=== PATIENT | male | born 1995 | race Asian ===

== ENCOUNTER 2020-05-17 14:40 | Emergency (ER) | payer OTHER ==
[~2020-05-17] VITALS: Ht 180.3 cm; Wt 72.6 kg
[2020-05-17 15:57] LABS: PLATELET COUNT 359 K/uL (142-355)
[2020-05-17 16:06] LABS: POTASSIUM 4.2 mmol/L (3.6-5.2)
[2020-05-17 17:25] VITALS: BP 116/83; TEMP 98.7
== END 2020-05-17 17:30 | disposition home or self-care (01) ==
LOC: ED 14:40
PROVIDERS: Emergency Medicine Emergency Medical Services
DX: S39.011A Strain of muscle, fascia and tendon of abdomen, initial encounter (principal)
CPT/HCPCS: 36415; 80053; 81000; 83690; 85027; 99283